=== PATIENT | female | born 1960 | race Caucasian/White ===

== ENCOUNTER → 2020-01-20 10:43 | Outpatient (POV) | payer MEDICAID, SELFPAY ==
[2020-01-20 10:51] VITALS: BMI 25.1
--- NOTE | 2020-01-20 12:33 | [facility].PMCON ---
Assessment and Plan (1) Degenerative disc disease, lumbar Current visit: Yes Status: Chronic Category: Medical Code(s): M51.36 - Other intervertebral disc degeneration, lumbar region (2) Lumbar radiculopathy Current visit: Yes Status: Chronic Category: Medical Code(s): M54.16 - Radiculopathy, lumbar region - Assessment and plan all Dx Assessment and Plan for all problems:: We will continue her on her Henrietta 10 mg 1 p.o. 4 times daily and tramadol 50 mg 1 p.o. 4 times daily. We will see her back in 2 months reassess her symptoms at that time she has been instructed to call the office if she has any issues prior to her next appointment. This encounter was performed as a telemedicine visit via secure 2 way video and audio to minimize risk and transmission of Covid-19. The patient and we understand the limitations of a telemedicine visit including inability to check reflexes, possibly missing subtle findings on physical exam. Alternative options were presented to the patient and the patient elected to proceed with the visit. We specifically discussed risk factors for Covid-19 including age, heart or lung disease, diabetes, immunosuppression and travel. We also discussed that NSAIDs may worsen Covid-19 infection symptoms and that they should not be used to treat Covid-19 symptoms. Patient was also informed that corticosteroids in any form oral or injectable will decrease immune response and may increase risk of Covid-[address] Lomax has reviewed this patient's chart and this note and agrees with plan of care. Patient has been instructed to call the office if they have any issues prior to the next appointment. Patient has been prescribed a controlled substance after being counseled on the medication, medication safety, and possible side effects. [facility] report has been obtained and reviewed prior to prescription and found to be appropriate. Opioid contract was reviewed and signed by the patient, and that they have agreed to all of the terms set forth by our compliance program. HPI - Data of Consult Consult date: 01/20/20 Requesting Physician: Mackenzie Rehman APRN Primary Care Provider: Referral Provider, MD - Consult Narrative Reason for consult: Medication refills History of present illness: Ms. Keating is a 59 year old female who presents today for a telehealth visit in regards to medication refills. She is an established patient at [facility]. She is being treated for low back pain secondary to degenerative disc disease lumbar spondylosis and radiculopathy symptoms. She is currently managed with Henrietta 10 mg 1 tab p.o. 4 times daily and tramadol 50 mg 1 tab p.o. 4 times daily. She is also takes tizanidine. Patient states that her diclofenac gel that was prescribed to her at her last visit was not beneficial. She rates her pain a 7 out of 10 today. Ciera reviewed and appropriate. Urine drug screens have been appropriate. CC: Mackenzie Rehman APRN [facility] History I have reviewed the patient's past medical history: Yes Medical History: Reports:: Hypertension Denies:: Cancer, Diabetes Mellitus Type 1, Diabetes Mellitus Type 2, MRSA *Have you ever received a pneumonia vaccine?: Yes *Have you received a flu vaccine this season?: Yes Other Surgeries: Yes: Cardiac Catheterization, Coronary Stent Amputation: No Fractures: No - *Social History Smoking Status: Never smoker Alcohol Intake: never *Occupational Status:: other Housing: other *Travel in the last 8 weeks: None Family Hx:: Unable to obtain Review of Systems - Review of Systems ROS General: no recent weight change, no fever, no sleep disturbances Respiratory: no cough, no shortness of air, no recurring pulmonary infections Cardiovascular/Peripheral Vascular: No chest pain, No palpitations, no edema, no shortness of breath. Gastrointestinal: no new onset incontinence, normal bowel movements reported Genitourinary: no new
== END ==
PROVIDERS: Visit Provider Clinical Nurse Specialist Family Health
DX: M51.16 Intervertebral disc disorders with radiculopathy, lumbar region (principal)
CPT/HCPCS: 99202